=== PATIENT | female | born 1955 ===

== ENCOUNTER → 2018-06-16 01:50 | Outpatient (REF) | payer OTHER, SELFPAY ==
[2018-06-16 06:55] LABS: Vitamin D 25 Hydroxy (D3) 75.9 ng/mL (30.0-100.0)
[2018-06-16 09:14] LABS: Thyroid Stimulating Hormone 2.65 uIU/mL (0.47-4.68)
[2018-06-20 16:29] LABS: Triiodothyronine T3 Total 101 ng/dL (76-181)
== END ==
LOC: LAB 01:50
PROVIDERS: Visit Provider Family Medicine
DX: E03.9 Hypothyroidism, unspecified (principal); M85.80 Other specified disorders of bone density and structure, unspecified site
CPT/HCPCS: 36415; 82306; 84439; 84443; 84480

== ENCOUNTER → 2018-11-21 22:14 | Outpatient (ROUT) | payer OTHER, SELFPAY ==
[2018-11-21 23:28] LABS: HEMOLYSIS 17 (0-50); Iron 84 ug/dL (37-170)
[2018-11-21 23:31] LABS: Alanine Aminotransferase 38 IU/L (9-52); Albumin 4.2 g/dL (3.5-5.0); Albumin Globulin Ratio 1.8 (1.0-2.8); Alkaline Phosphatase 70 U/L (38-126); Aspartate Aminotransferase 27 IU/L (14-36); BUN Creatinine Ratio 25.6 (6-22); Bilirubin Total 0.4 mg/dL (0.2-1.3); Blood Urea Nitrogen 23 mg/dL (7-17); Calcium 9.4 mg/dL (8.4-10.2); Carbon Dioxide 32 mmol/L (22-32); Chloride 100 mmol/L (98-107); Estimated Glomerular Filt Rate > 60.0 mL/min (>60); Globulin 2.3 g/dL (1.7-4.1); Glucose 96 mg/dL (80-110); HEMOLYSIS < 15 (0-50); Sodium 139 mmol/L (137-145); Total Protein 6.5 g/dL (6.3-8.2)
[2018-11-21 23:38] LABS: Percent Iron Saturation 34 % (15-50); Total Iron Binding Capacity 245 ug/dL (265-497); Transferrin 188 mg/dL (206-381)
[2018-11-22 00:21] LABS: Add Manual Diff / Slide Review NO; Basophils Absolute Auto 0 /uL (0-100); Basophils Percent Auto 0.6 % (0-2); Eosinophils Absolute Auto 300 /uL (0-450); Eosinophils Percent Auto 6.3 % (2-4); Hematocrit 42.2 % (36-46); Lymphocytes Absolute Auto 1500 /uL (1100-4500); Lymphocytes Percent Auto 38.1 % (25-40); Mean Corpuscular HGB Conc 33.3 % (30-36); Mean Corpuscular Hemoglobin 30.2 PG (26-34); Mean Corpuscular Volume 90.9 fL (80-100); Monocytes Absolute Auto 400 /uL (0-900); Neutrophils Absolute Auto 1800 /uL (1500-7000); Platelet Count 163 X10^3/uL (150-400); Red Blood Cell Count 4.64 X10^6/uL (4.0-5.2); Red Cell Distribution Width 12.6 % (11.6-14.8)
[2018-11-22 00:35] LABS: Folate 18.1 ng/mL (2.76-20.0); Vitamin B12 > 1000 pg/mL (239-931)
== END ==
PROVIDERS: Visit Provider Family Medicine
DX: E03.9 Hypothyroidism, unspecified (principal); M85.80 Other specified disorders of bone density and structure, unspecified site; R63.4 Abnormal weight loss
CPT/HCPCS: 36415; 80053; 82607; 82728; 82746; 83540; 83550; 85025